=== PATIENT | female | born 1935 | race Caucasian/White ===

== ENCOUNTER 2020-05-20 22:58 | Inpatient (IN) | payer MEDICARE, OTHER ==
[~2020-05-20] VITALS: Ht 170.2 cm; Wt 81.6 kg
[~2020-05-20 22:58] MED LIST: AMLO2.5T2 PO; AMYL1CAP58 PO; ATOR40TA GT; CALC-718 PO; CLOP75TA15 PO; DEXL60CA3 PO; LEVO100T9 PO; MECL-159 PO; OLME40TA12 PO; RANI300T7 PO
[2020-05-20] MEDS ORDERED: ONDANSETRON HCL/PF 4 MG/2 ML VIAL ONE (23:46)
[2020-05-20 23:57] LABS: BASOPHILS % (AUTO) 0.3 % (0.0-2.0); EOSINOPHILS % (AUTO) 0.2 % (0.0-6.0); HEMATOCRIT 34 % (33-45); HEMOGLOBIN 11.1 g/dL (11.5-14.8); LYMPHOCYTES % (AUTO) 11.3 % (20.0-44.0); MEAN CORPUSCULAR HGB CONC 33 g/dl (31.0-36.0); MEAN CORPUSCULAR VOLUME 89 fL (82-100); MONOCYTES # (AUTO) 0.9 /CMM (0.1-1.30); MONOCYTES % (AUTO) 10.4 % (2.0-12.0); NEUTROPHILS # (AUTO) 6.8 /CMM (1.8-8.9); NEUTROPHILS % (AUTO) 77.8 % (43.0-81.0); PLATELET COUNT (AUTO) 235 /CMM (150-450); RED BLOOD CELL COUNT(AUTO) 3.75 MIL/uL (4.0-5.2); WHITE BLOOD COUNT (AUTO) 8.8 K/uL (4.3-11.0)
[2020-05-21] MEDS ORDERED: IV NS 0.9% 1,000 ML BAG IV ONE
[2020-05-21] MEDS ORDERED: ONDANSETRON HCL/PF 4 MG/2 ML VIAL IVP ONE
--- NOTE | 2020-05-21 | NUR ---
BIBS C/O HEADACHE, FEVER, ABDOMINAL PAIN WITH NAUSEA X3 DAYS. PT DENIES N/V.
[2020-05-21 00:13] LABS: ALBUMIN 3.5 g/dL (3.4-5.0); BILIRUBIN,DIRECT 0.2 mg/dL (0.0-0.2); BILIRUBIN,TOTAL 0.5 mg/dL (0.2-1.0); CALCIUM, SERUM 8.2 mg/dL (8.5-10.1); CREATININE 1.2 mg/dL (0.6-1.3); POTASSIUM 3.5 mmol/L (3.5-5.1); TOTAL PROTEIN, SERUM 7.5 g/dL (6.4-8.2)
[2020-05-21] MEDS ORDERED: CT SWABBABLE VALVE TRANS SET 1 EA INFUS.SET MC ONE (00:24)
[2020-05-21] MEDS ORDERED: IOHEXOL-300 100 ML VIAL IV ONE (00:24)
[2020-05-21] MEDS ORDERED: IV NS 0.9% 250 ML IV ONE (00:25)
[2020-05-21 00:44] LABS: APPEARANCE,URINE CLEAR (CLEAR); BILIRUBIN,URINE NEGATIVE (NEGATIVE); BLOOD, URINE TRACE-INTA Ery/uL (NEGATIVE); COLOR,URINE YELLOW (YELLOW); KETONES,URINE NEGATIVE (NEGATIVE); LEUKOCYTE ESTERASE ,URINE TRACE (NEGATIVE); NITRITE, URINE NEGATIVE (NEGATIVE); PROTEIN,URINE TRACE mg/dl (NEGATIVE); UGLUCOSE NEGATIVE (NEGATIVE); UROBILINOGEN,URINE 0.2 EU/dL (0.2)
[2020-05-21 01:22] LABS: BACTERIA,URINE None seen /HPF (None Seen); SQUAMOUS EPITHELIAL CELL,UR Few /HPF (None Seen)
[2020-05-21] MEDS ORDERED: PIPERACILLIN /TAZOBACTAM 3.375 G VIAL IV ONE (02:46)
[2020-05-21] MEDS ORDERED: PIPERACILLIN /TAZOBACTAM 3.375 G in IV D5W 50 ML IV ONE (03:00)
--- NOTE | 2020-05-21 03:20 | NUR ---
covid test collected and sent to lab
--- NOTE | 2020-05-21 04:25 | NUR ---
COVID NEGATIVE PER LAB
--- NOTE | 2020-05-21 05:32 | NUR ---
REPORT GIVEN TO ALICJA HDEZ
--- NOTE | 2020-05-21 05:34 | NUR ---
Received report from KETTY Esparza for BRII.
--- NOTE | 2020-05-21 06:20 | NUR ---
FREELANCE RECRUITER NOTE: Pt arrived to unit via wheelchair accompanied by RN. Bill, mainly [place] speaking. On room air, tolerating well. No SOB or respiratory distress noted. Breathing even and unlabored. IV site on left AC #20 patent and flushed. Dressing c/d/i. pt ambulated to bed, w/ unsteady gait. Refused bed bath at this time. VSS. Oriented to room and call light. Safety measures in place. Addendum: 05/21/20 at 0640 by ALICJA KING RN Paged Dr. Nikhil Hassan to update that pt is on unit and for admitting orders.
[2020-05-21 06:33] VITALS: BP 137/73
--- NOTE | 2020-05-21 06:39 | NUR ---
pt taken to [facility] via acls protocol
--- NOTE | 2020-05-21 07:02 | NUR ---
RN CLOSING NOTES: Pt remains in stable condition. No acute changes noted. Will endorse to AM nurse for BRII
--- NOTE | 2020-05-21 07:15 | NUR ---
RN NOTES RECEIVED PATIENT ASLEEP, AWAKEN BY VERBAL STIMULI. A/0 X4, ABLE TO MAKE NEEDS KNOWN BUT SPEAK PRIMARILY GRENADIAN LANGUAGE.WITH COMPLAINTS OF PAIN ON THE ABDOMEN, SCALE 3-4/10. ON ROOM AIR, BREATHING UNLABORED, SATING FINE. SINUS RHYTHM ON THE MONITOR WITH HR ON THE MONITOR WITH HR ON THE 60s. IV ACCESS ON THE LAC G 20, INTACT AND IN PLACE, FLUSHES GOOD. PATIENT ENCOURAGE TO CALL FOR ASSISTANCE, ENCOURAGE TO CALL FOR HELP AND ASSISTANCE, CALL LIGHT PLACED WITHIN REACH. BED PLACE IN LOW AND LOCKED POSITION. WILL CONTINUE TO MONITOR PATIENT ACCORDINGLY
[2020-05-21] MEDS ORDERED: ONDANSETRON HCL/PF 4 MG/2 ML VIAL IVP PRN (07:30)
[2020-05-21] MEDS ORDERED: Z GUARD REMEDY 2 OZ OINT TP PRN (07:30)
[2020-05-21] MEDS ORDERED: MECLIZINE HCL 25 MG TABLET PO PRN (07:30)
[2020-05-21] MEDS: LEVOTHYROXINE SODIUM 100 MCG TABLET PO SCH (07:30)
[2020-05-21 08:00] VITALS: BP 141/71
[2020-05-21] MEDS ORDERED: AMYLASE/LIPASE/PROTEASE 1 CAP CAPSULE.DR PO SCH (08:00)
[2020-05-21] MEDS: LIPASE/PROTEASE/AMYLASE 1 EACH CAPSULE.DR PO SCH ×3 (08:38→17:47)
[2020-05-21] MEDS: AMLODIPINE BESYLATE 2.5 MG TABLET PO SCH (09:00)
[2020-05-21] MEDS: ATORVASTATIN 40 MG TABLET PO SCH (09:00)
[2020-05-21] MEDS: VALSARTAN 80 MG TABLET PO SCH (09:00)
[2020-05-21] MEDS: CLOPIDOGREL BISULFATE 75 MG TABLET PO SCH (09:00)
[2020-05-21] MEDS: ENOXAPARIN SODIUM 40 MG/0.4 ML DISP.SYRIN SQ SCH (09:00)
--- NOTE | 2020-05-21 09:00 | NUR ---
RN NOTES 0846> OBTAIN ORDER FOR CONSENT FOR LAPAROSCOPY VERSUS OPEN EXPLORATION WITH POSSIBLE BOWEL RESECTION, POSSIBLE OSTOMY AND POSSIBLE ANY OTHER INDICATED PROCEDURE FROM DR. HERNANDEZ. AT THIS TIME PATIENT HAD EATEN APPLE SAUCE THE BREAKFAST TRAY HAS BEEN SERVED. INFORMED DR. HERNANDEZ ABOUT THE SITUATION, PER THE MD, IT IS OKAY 0900> OBTAINED CONSENT FOR SUGGESTED PROCEDURE FROM THE PATIENT HERSELF, KETTY IBANEZ AT BEDSIDE TO TRANSLATE. 0915> PATIENT TRANSPORTED TO OR BY OR TEAM.
--- NOTE | 2020-05-21 09:00 | NUR ---
rn notes oral meds not given due to schedule procedure
[2020-05-21] MEDS: PIPERACILLIN /TAZOBACTAM 3.375 G in IV D5W 100 ML IV SCH ×2 (09:21→17:02)
[2020-05-21] MEDS ORDERED: FENTANYL PF 250MCG/5ML AMPUL ONE (09:58)
[2020-05-21] MEDS ORDERED: MIDAZOLAM HCL 2 MG/2ML VIAL ONE (09:58)
[2020-05-21] MEDS ORDERED: FAMOTIDINE/PF INJ 20 MG/2 ML VIAL IV ONE (09:59)
[2020-05-21] MEDS ORDERED: HYDROMORPHONE INJ 2 MG/ML DISP.SYRIN ONE (09:59)
[2020-05-21] MEDS ORDERED: ROCURONIUM BROMIDE 50 MG/5 ML ONE (09:59)
[2020-05-21] MEDS ORDERED: LIDOCAINE 1% INJ 50 ML MDV IJ ONE (10:42)
[2020-05-21] MEDS ORDERED: BUPIVACAINE MPF 0.5% W/EPI INJ 30 ML VIAL ONE (10:43)
[2020-05-21] MEDS ORDERED: PIPERACILLIN /TAZOBACTAM 3.375 G in IV D5W 50 ML IV SCH (12:00)
[2020-05-21 12:01] LABS: THYROID STIMULATING HORMONE 0.428 uIU/mL (0.358-3.74)
[2020-05-21] MEDS ORDERED: hydrALAZINE HCL IV 20 MG VIAL ONE (12:18)
[2020-05-21 12:24] LABS: MAGNESIUM 2.1 mg/dL (1.8-2.4); PHOSPHORUS 3.3 mg/dL (2.5-4.9)
--- NOTE | 2020-05-21 13:00 | NUR ---
rn notes medication not given due to patient s/p laparotomy, awaiting confirmation for post op order from Dr. Elizondo
[2020-05-21 13:30] VITALS: BP 113/67
--- NOTE | 2020-05-21 13:30 | NUR ---
sly betancourt patient back from OR. awake, able to respond appropriately but is lethargic. per report patient s/p laparotomy, appendectomy with liver biopsy. made comfortable and warmth in bed. vital signs taken and noted (please refer to vital signs flow sheet). encourage to verbalize feelings and concerns. call light placed within reach. will continue to monitor patient accordingly 1405> Confirmed with Dr. Elizondo to continue all previous preop orders Addendum: 05/21/20 at 1647 by JEREMY QUEVEDO RN laparotomy site with with steri strip, with minimal bleeding noted
[2020-05-21 16:00] VITALS: BP 102/60
[2020-05-21] MEDS: IV NS 0.9% 1,000 ML IV PRN (17:02)
[2020-05-21] MEDS: ACETAMINOPHEN 325 MG TABLET PO PRN (17:54)
--- NOTE | 2020-05-21 18:30 | NUR ---
rn notes patient with no acute changes throughout the shift. breathing unlabored, with minimal oxygen support via nasal cannula at 2 lpm, sating fire.with coplaints of pain at surgical site but declines morphine due to tylenol was just given. all nursing needs attended. all concerns addressed accordingly. safety measures in place at all time. call light within reach Addendum: 05/21/20 at 1845 by JEREMY QUEVEDO RN surgical site dry, no bleeding noted aside from the stain on the steri strips which are noted when patient came back from procedure. patient was able to ambulate to the restroom once since transfer ffromm OR but with assist from the staff
--- NOTE | 2020-05-21 19:56 | NUR ---
SOCIAL MEDIA MARKETER NOTE PT IN BED A/O X 4 HAITIAN SPEAKING, NO SOB, NO DISTRESS OR DISCOMFORT NOTED. DENIES PAIN AT THIS TIME. STERI STRIPES X 3 ON LT SIDE OF ABD INTACT WITH SOME DRY BLOOD NOTED ON THEM. ON TELE MONITOR SR/SB HR 66 WITH INVERTED T WAVE. IVF NS @ 75 ML/HR INFUSING WELL, NO S/S OF INFILTRATION NOTED. ALSO INFUSING ATB ZOSYN AT 25 MG/HR. NO S/S OF INFILTRATION NOTED. KEPT HIM DRY AND CLEAN. ALL NEEDS ATTENDED. VSS. SIDE RAILS UP X 2 AND CALL LIGHT WITHIN REACH. CONTINUE TO MONITOR HIM.
--- NOTE | 2020-05-21 19:56 | NUR ---
Patient primary language is Eritrean. Spoke with son Nathan [phone]. Patient lives locally with spouse in the second floor apartment with no elevator access. She was ambulating with a walker prior to admission and min assist with adl's. Has no homehealth reported, she owns a cane and walker for mobility. Has good family support and will provide ride when discharge.. Addendum: 05/21/20 at 1955 by CHRIS BANKS RN Amended: Links added.
[2020-05-21 20:00] VITALS: BP 90/49
[2020-05-21] MEDS: MORPHINE SULFATE INJ 2 MG/ML DISP.SYRIN IV PRN (23:24)
[2020-05-22] VITALS: BP 127/68
[2020-05-22] MEDS: PIPERACILLIN /TAZOBACTAM 3.375 G in IV D5W 100 ML IV SCH ×3 (01:56→17:00)
[2020-05-22] MEDS: IV NS 0.9% 1,000 ML IV PRN (05:48)
[2020-05-22] MEDS: ACETAMINOPHEN 325 MG TABLET PO PRN (06:03)
--- NOTE | 2020-05-22 06:38 | NUR ---
REEL AND REWINDER OPERATOR NOTE PT IN BED AWAKE. NO DISTRESS OR DISCOMFORT NOTED. DENIES PAIN. ON TELE SR . SIDE RAILS UP X 2 AND CALL LIGHT WITHIN REACH. WILL ENDORSE TO DAY SHIFT NURSE FOR CONTINUE TO CARE.
[2020-05-22 07:00] LABS: BASOPHILS % (AUTO) 0.4 % (0.0-2.0); EOSINOPHILS % (AUTO) 1.1 % (0.0-6.0); HEMATOCRIT 32 % (33-45); HEMOGLOBIN 10.3 g/dL (11.5-14.8); LYMPHOCYTES # (AUTO) 1.2 /CMM (0.8-4.8); LYMPHOCYTES % (AUTO) 13.8 % (20.0-44.0); MEAN CORPUSCULAR HGB CONC 33 g/dl (31.0-36.0); MEAN CORPUSCULAR VOLUME 93 fL (82-100); MONOCYTES % (AUTO) 11.3 % (2.0-12.0); NEUTROPHILS # (AUTO) 6.6 /CMM (1.8-8.9); NEUTROPHILS % (AUTO) 73.4 % (43.0-81.0); PLATELET COUNT (AUTO) 197 /CMM (150-450); RED BLOOD CELL COUNT(AUTO) 3.41 MIL/uL (4.0-5.2)
--- NOTE | 2020-05-22 07:25 | NUR ---
RN OPENING NOTES RECEIVED PT IN BED . A/O X 4. MONTSERRATIAN SPEAKING. ON 2L O2 VIA NC SATURATING @97%. NO SOB OR NO ANY RESPIRATORY DISTRESS AT THIS TIME. STERI STRIPES X 3 ON LT SIDE OF ABD INTACT WITH SOME DRY BLOOD NOTED ON THEM. L HAND #20 INTACT, PATENT AND FLUSHED. IVF NS @ 75 ML/HR INFUSING WELL. NO PAIN REPORTED AT THIS MOMENT. SAFETY MEASURES OBSERVED. CALL LIGHT WITHIN REACH. BED LOCKED AND AT LOWEST POSITION WITH SIDE RAILS UP X2. WILL CONTINUE TO MONITOR.
[2020-05-22 07:35] LABS: CALCIUM, SERUM 7.4 mg/dL (8.5-10.1); CREATININE 1.1 mg/dL (0.6-1.3); MAGNESIUM 2.3 mg/dL (1.8-2.4); PHOSPHORUS 3.3 mg/dL (2.5-4.9); POTASSIUM 3.3 mmol/L (3.5-5.1)
[2020-05-22 08:00] VITALS: BP 145/76
[2020-05-22] MEDS: LIPASE/PROTEASE/AMYLASE 1 EACH CAPSULE.DR PO SCH ×3 (08:12→18:07)
[2020-05-22] MEDS: LEVOTHYROXINE SODIUM 100 MCG TABLET PO SCH (08:12)
[2020-05-22] MEDS: AMLODIPINE BESYLATE 2.5 MG TABLET PO SCH (08:13)
[2020-05-22] MEDS: CLOPIDOGREL BISULFATE 75 MG TABLET PO SCH ×2 (08:13→08:59)
[2020-05-22] MEDS: VALSARTAN 80 MG TABLET PO SCH ×2 (08:13→08:59)
[2020-05-22] MEDS: ATORVASTATIN 40 MG TABLET PO SCH ×2 (08:13→08:59)
[2020-05-22] MEDS: ENOXAPARIN SODIUM 40 MG/0.4 ML DISP.SYRIN SQ SCH ×2 (08:15→08:59)
[2020-05-22 08:35] LABS: THYROID STIMULATING HORMONE 0.485 uIU/mL (0.358-3.74)
--- NOTE | 2020-05-22 09:00 | NUR ---
RN NOTES PER DR. HURD HOLD STATIN, PLAVIX AND LOVENOX UNTIL OK WITH DR. HERNANDEZ. WILL CONTINUE TO MONITOR
[2020-05-22] MEDS: POTASSIUM CL. PREMIX PERIPHER. 50 ML IV SCH ×4 (09:26→12:08)
[2020-05-22] MEDS ORDERED: POTASSIUM CHLORIDE 20 MEQ TAB.PRT.SR PO ONE (13:00)
[2020-05-22] MEDS: SOD FERRIC GLUC 125 MG in IV NS 0.9% 100 ML IV SCH (14:00)
[2020-05-22 16:00] VITALS: BP 159/84
--- NOTE | 2020-05-22 19:00 | NUR ---
RN OPENING NOTE RECEIVED PATIENT IN BED RESTING ALERT ORIENTED VERBALLY RESPONSIVE NO SOB NOT ACUTE DISTRESS NOTED, PALAUAN SPEAKER ON OXYGEN 2L VIA NASAL CANNULA O2:96% IV LINE IS ON LEFT FOREARM INTACT PATENT ON IV HYDRATION NS 0.9% 75 CC/HR,AMBULATE WITH ASSIST CONTINENT TO BOWEL/BLADDER,BED LOCKED IN LOW POSITION,BED ALARM IS ON,CALL LIGHT WITHIN REACH,CONTINUE TO MONITOR
--- NOTE | 2020-05-22 19:09 | NUR ---
RN OPENING NOTES PT RESTING IN BED . A/O X 4. CHINESE SPEAKING. ON 2L O2 VIA NC SATURATING @98%. NO SOB OR NO ANY RESPIRATORY DISTRESS AT THIS TIME. STERI STRIPES X 3 ON LT SIDE OF ABD INTACT WITH SOME DRY BLOOD NOTED ON THEM. L HAND #20 INTACT, PATENT AND FLUSHED. IVF NS @ 75 ML/HR INFUSING WELL. NO PAIN REPORTED AT THIS MOMENT. ALL MEDS ADMINISTERED ORDERED. NO SIGNIFICANT CHANGES. SAFETY MEASURES OBSERVED. CALL LIGHT WITHIN REACH. BED LOCKED AND AT LOWEST POSITION WITH SIDE RAILS UP X2. WILL ENDORSE TO NIGHT NURSE FOR BRII Addendum: 05/22/20 at 1913 by PATRICIA AUGUSTIN RN RN CLOSING NOTES
[2020-05-22] MEDS: MORPHINE SULFATE INJ 2 MG/ML DISP.SYRIN IV PRN (20:31)
[2020-05-22 21:08] VITALS: BP 155/89
[2020-05-23] VITALS: BP 184/102
[2020-05-23] MEDS ORDERED: hydrALAZINE HCL 25 MG TABLET PO PRN (00:30)
[2020-05-23] MEDS: PIPERACILLIN /TAZOBACTAM 3.375 G in IV D5W 100 ML IV SCH ×3 (00:40→17:04)
--- NOTE | 2020-05-23 00:45 | NUR ---
RN NOTE BP IS 184/[address] PHILLIP WITH NEW ORDER HYDRALAZINE 25MG PO PRN EVERY 4 HOURS IF SBP>165 NOTED AND CARRIED OUT,HYDRALAZINE 25MG PO GIVEN CONTINUE TO MONITOR
--- NOTE | 2020-05-23 02:12 | NUR ---
RN NOTE BP 159/89 HR 77 RR:20 T:98.1 O2:98% ON 2L/MIN VIA NASAL CANNULA
[2020-05-23 06:23] LABS: BASOPHILS % (AUTO) 0.5 % (0.0-2.0); EOSINOPHILS % (AUTO) 0.9 % (0.0-6.0); HEMATOCRIT 34 % (33-45); HEMOGLOBIN 11.5 g/dL (11.5-14.8); LYMPHOCYTES # (AUTO) 0.9 /CMM (0.8-4.8); LYMPHOCYTES % (AUTO) 10.5 % (20.0-44.0); MEAN CORPUSCULAR HGB CONC 33 g/dl (31.0-36.0); MEAN CORPUSCULAR VOLUME 89 fL (82-100); MONOCYTES # (AUTO) 0.8 /CMM (0.1-1.30); MONOCYTES % (AUTO) 9.2 % (2.0-12.0); NEUTROPHILS # (AUTO) 6.7 /CMM (1.8-8.9); NEUTROPHILS % (AUTO) 78.9 % (43.0-81.0); PLATELET COUNT (AUTO) 254 /CMM (150-450); RED BLOOD CELL COUNT(AUTO) 3.88 MIL/uL (4.0-5.2); WHITE BLOOD COUNT (AUTO) 8.5 K/uL (4.3-11.0)
--- NOTE | 2020-05-23 06:56 | NUR ---
RN CLOSING NOTE PATIENT REMAINS ON ALERT ORIENTED VERBALLY RESPONSIVE NO SOB NOT ACUTE DISTRESS NOTED SHE IS ON 2L/MIN OXYGEN VIA NASAL CANNULA O2:97% IV SITE IS ON LEFT FOREARM INTACT PATENT FLUSHED ON IV HYDRATION NS 0.9% 75CC/HR,AMBULATE WITH ASSIST CONTINENT TO BOWEL AND BLADDER,ALL DUE MEDS GIVEN MD ORDERED,KEPT CLEAN AND DRY ALL THE TIME,SAFETY MEASURE IMPLEMENTED,KEPT CALL LIGHT WITHIN REACH,ALL NEEDS MET,ENDORSE NEXT SHIFT FOR CONTINUATION OF CARE.
[2020-05-23 07:05] LABS: BILIRUBIN,TOTAL 0.5 mg/dL (0.2-1.0); CALCIUM, SERUM 7.9 mg/dL (8.5-10.1); MAGNESIUM 2.1 mg/dL (1.8-2.4); POTASSIUM 3.1 mmol/L (3.5-5.1); TOTAL PROTEIN, SERUM 7.1 g/dL (6.4-8.2)
--- NOTE | 2020-05-23 07:15 | NUR ---
RN OPENING NOTES RECEIVED PT IN BED . A/O X 4. BRITISH SPEAKING. ON 2L O2 VIA NC SATURATING @96%. NO SOB OR NO ANY RESPIRATORY DISTRESS AT THIS TIME. STERI STRIPES X 3 ON LT SIDE OF ABD INTACT WITH SOME DRY BLOOD NOTED ON THEM. LEANA #20 INTACT, PATENT AND FLUSHED. IVF NS @ 75 ML/HR INFUSING WELL. NO PAIN REPORTED AT THIS MOMENT. SAFETY MEASURES OBSERVED. CALL LIGHT WITHIN REACH. BED LOCKED AND AT LOWEST POSITION WITH SIDE RAILS UP X2. WILL CONTINUE TO MONITOR.
[2020-05-23] MEDS: LEVOTHYROXINE SODIUM 100 MCG TABLET PO SCH (07:30)
[2020-05-23 08:00] VITALS: BP 163/82
[2020-05-23] MEDS: LIPASE/PROTEASE/AMYLASE 1 EACH CAPSULE.DR PO SCH ×3 (08:00→17:06)
[2020-05-23] MEDS: ENOXAPARIN SODIUM 40 MG/0.4 ML DISP.SYRIN SQ SCH (09:00)
[2020-05-23] MEDS: ATORVASTATIN 40 MG TABLET PO SCH (09:00)
[2020-05-23] MEDS: CLOPIDOGREL BISULFATE 75 MG TABLET PO SCH (09:00)
[2020-05-23] MEDS: VALSARTAN 80 MG TABLET PO SCH (09:42)
[2020-05-23] MEDS: AMLODIPINE BESYLATE 2.5 MG TABLET PO SCH (09:42)
--- NOTE | 2020-05-23 10:00 | NUR ---
RN NOTES OBTAINED CONSENT FOR CT ANGIOGRAPHY. PT SIGNED
[2020-05-23] MEDS: POTASSIUM CHLORIDE 20 MEQ TAB.PRT.SR PO SCH ×3 (10:35→12:00)
[2020-05-23] MEDS ORDERED: IV NS 0.9% 500 ML IV PRN (11:00)
[2020-05-23] MEDS ORDERED: NITROGLYCERIN 0.4 MG/TAB BOTTLE SL PRN (11:00)
--- NOTE | 2020-05-23 11:30 | NUR ---
RN NOTES PT WAS BROUGHT TO CT ANGIO PER WHEELCHAIR. VS STABLE
[2020-05-23] MEDS ORDERED: NITROGLYCERIN 0.4 MG/TAB BOTTLE ONE (11:35)
[2020-05-23] MEDS ORDERED: METOPROLOL TARTRATE INJ 5 MG/5 ML AMPUL ONE (11:35)
[2020-05-23] MEDS ORDERED: IOHEXOL-350 100 ML VIAL IV ONE (11:45)
[2020-05-23] MEDS ORDERED: IV NS 0.9% 250 ML IV ONE (11:45)
[2020-05-23] MEDS: METOPROLOL TARTRATE INJ 5 MG/5 ML AMPUL IVP PRN ×2 (11:55→12:00)
[2020-05-23] MEDS: METOPROLOL TARTRATE 25 MG TABLET PO SCH ×3 (12:00→23:20)
--- NOTE | 2020-05-23 12:14 | NUR ---
received from floor via wheelchair for CTA heart with 3D imaging; pt received a Metoprolol 5mg IV x 2 dose (total of 10 mg) and NTG 0.4 SL; pt tolerated procedure; denies CP or SOB, report given to KETTY Mcdermott; sent back to floor by wheelchair
--- NOTE | 2020-05-23 12:45 | NUR ---
RN NOTES PT CAME BACK FROM CT ANGIO. VS STABLE. NO PAIN REPORTED AT THIS TIME. WILL CONTINUE TO MONITOR
[2020-05-23] MEDS ORDERED: BISACODYL (5 MG) 5 MG TABLET.DR PO PRN (13:00)
[2020-05-23] MEDS: ACETAMINOPHEN 325 MG TABLET PO PRN (13:09)
[2020-05-23] MEDS: SOD FERRIC GLUC 125 MG in IV NS 0.9% 100 ML IV SCH (14:00)
[2020-05-23 16:00] VITALS: BP 153/79
[2020-05-23] MEDS ORDERED: POTASSIUM CHLORIDE 20 MEQ TAB.PRT.SR PO ONE (17:00)
--- NOTE | 2020-05-23 19:32 | NUR ---
RN CLOSING NOTES PT RESTING IN BED. A/O X 4. MOZAMBICAN SPEAKING. ON 2L O2 VIA NC SATURATING @96%. NO SOB OR NO ANY RESPIRATORY DISTRESS AT THIS TIME. STERI STRIPES X 3 ON LT SIDE OF ABD INTACT WITH SOME DRY BLOOD NOTED ON THEM. LAC #18 INTACT, PATENT AND FLUSHED. IVF NS @ 75 ML/HR INFUSING WELL. NO PAIN REPORTED AT THIS MOMENT. SAFETY MEASURES OBSERVED. CALL LIGHT WITHIN REACH. BED LOCKED AND AT LOWEST POSITION WITH SIDE RAILS UP X2. WILL ENDORSE TO NIGHT NURSE FOR BRII.
--- NOTE | 2020-05-23 19:40 | NUR ---
RN OPENING NOTE RECEIVED PATIENT IN BED RESTING ALERT ORIENTED X4 VERBALLY RESPONSIVE,CZECH SPEAKER NO SOB NOT ACUTE DISTRESS NOTED ON 2L OXYGEN VIA NASAL CANNULA O2:96% NO PAIN AT THIS TIME,AMBULATE WITH ASSIST BY WALKER CONTINENT TO BOWEL AND BLADDER IV LINE IS ON LEFT AC INTACT PATENT FLUSHED,IV HYDRATION NORMAL SALINE 0.9% RUNNING 75CC/HR,DIET CHANGED TO SOFT DIET,IMPLEMENT SAFETY MEASURE,BED LOCKED AND IN LOW POSITON,KEEP CALL LIGHT WITHIN REACH,CONTINUE TO MONITOR.
[2020-05-23] MEDS: IV NS 0.9% 1,000 ML IV PRN (22:47)
[2020-05-24] VITALS: BP 130/69
[2020-05-24] MEDS: PIPERACILLIN /TAZOBACTAM 3.375 G in IV D5W 100 ML IV SCH ×3 (01:09→16:35)
[2020-05-24] MEDS: METOPROLOL TARTRATE 25 MG TABLET PO SCH ×3 (05:26→17:19)
--- NOTE | 2020-05-24 06:50 | NUR ---
RN CLOSING NOTE PATIENT REMAINS ALERT ORIENTED X4 VERBALLY RESPONSIVE NO SOB NOT ACUTE DISTRESS NOTED ON 2L/MIN VIA NASAL CANNULA O2:96% IV SITE IS ON LEFT AC INTACT PATENT IV HYDRATION NORMAL SALINE 0.9% RUNNING 75cc/HR.ALL DUE MEDS GIVEN MD ORDERED KEPT CLEAN AND DRY ALL THE TIME,KEPT CALL LIGHT WITHIN REACH,IMPLEMENTED SAFETY MEASURE,ALL NEEDS MET ENDORSE NEXT COMING SHIFT FOR CONTINUATION OF CARE.
[2020-05-24 06:52] LABS: CALCIUM, SERUM 7.8 mg/dL (8.5-10.1); POTASSIUM 3.4 mmol/L (3.5-5.1)
[2020-05-24 06:53] LABS: BASOPHILS % (AUTO) 0.2 % (0.0-2.0); EOSINOPHILS % (AUTO) 1.9 % (0.0-6.0); HEMATOCRIT 32 % (33-45); HEMOGLOBIN 10.7 g/dL (11.5-14.8); LYMPHOCYTES # (AUTO) 0.8 /CMM (0.8-4.8); LYMPHOCYTES % (AUTO) 11.3 % (20.0-44.0); MEAN CORPUSCULAR HGB CONC 34 g/dl (31.0-36.0); MEAN CORPUSCULAR VOLUME 89 fL (82-100); MONOCYTES # (AUTO) 0.9 /CMM (0.1-1.30); MONOCYTES % (AUTO) 11.8 % (2.0-12.0); NEUTROPHILS # (AUTO) 5.6 /CMM (1.8-8.9); NEUTROPHILS % (AUTO) 74.8 % (43.0-81.0); PLATELET COUNT (AUTO) 241 /CMM (150-450); RED BLOOD CELL COUNT(AUTO) 3.55 MIL/uL (4.0-5.2); WHITE BLOOD COUNT (AUTO) 7.5 K/uL (4.3-11.0)
--- NOTE | 2020-05-24 07:15 | NUR ---
MS RN NOTES PATIENT IN BED ALERT ORIENTED X 3. NO ACUTE DISTRESS NOTED. BREATHING UNLABORED. NO SOB NOTED. IV ACCESS PATENT AND INTACT, NO REDNESS, NO SWELLING NOTED. SAFETY MEASURES IN PLACE. CALL LIGHT WITHIN REACH. WILL CONTINUE TO MONITOR ACCORDINGLY.
[2020-05-24] MEDS ORDERED: POTASSIUM CHLORIDE 20 MEQ TAB.PRT.SR PO ONE (07:30)
[2020-05-24] MEDS: LEVOTHYROXINE SODIUM 100 MCG TABLET PO SCH (07:46)
[2020-05-24 08:00] VITALS: BP 158/80
[2020-05-24] MEDS: ATORVASTATIN 40 MG TABLET PO SCH ×2 (08:17→09:00)
[2020-05-24] MEDS: AMLODIPINE BESYLATE 5 MG TABLET PO SCH (08:17)
[2020-05-24] MEDS: LIPASE/PROTEASE/AMYLASE 1 EACH CAPSULE.DR PO SCH ×3 (08:18→17:18)
[2020-05-24] MEDS: VALSARTAN 80 MG TABLET PO SCH (08:19)
--- NOTE | 2020-05-24 08:30 | NUR ---
MS RN NOTES ATORVASTIN HELD PER MD ORDER, ALREADY OPEN PACKAGED, PROPERLY WASTED MEDICATION.
[2020-05-24] MEDS: CLOPIDOGREL BISULFATE 75 MG TABLET PO SCH (09:00)
[2020-05-24] MEDS: SENNOSIDES/DOCUSATE SODIUM 1 TAB TABLET PO SCH (09:00)
--- NOTE | 2020-05-24 09:00 | NUR ---
MS RN NOTES PATIENT REFUSED TO TAKE SENNA , RAYNE GOYAL MADE AWARE.
--- NOTE | 2020-05-24 09:30 | NUR ---
MS RN NOTES CLARIFIED WITH JESU MÉNDEZ REGARDING LOVENOX IF OK TO GIVE , RAYNE MÉNDEZ SAID HE WILL CHECK FIRST.
[2020-05-24] MEDS: ENOXAPARIN SODIUM 40 MG/0.4 ML DISP.SYRIN SQ SCH (10:00)
--- NOTE | 2020-05-24 10:00 | NUR ---
MS RN NOTES HELD LOVENOX PER AGENCY CASHIER JESU MÉNDEZ HOLD LOVENOX
[2020-05-24] MEDS ORDERED: LACTULOSE 10 G/15 ML UDC (PYXIS) PO ONE (11:00)
[2020-05-24] MEDS ORDERED: MAGNESIUM HYDROXIDE 30 ML UDC PO ONE (11:00)
[2020-05-24] MEDS ORDERED: AMOX500C2 PO (12:44)
[2020-05-24] MEDS ORDERED: DOCU100C36 PO (12:44)
[2020-05-24] MEDS ORDERED: BISACODYL (5 MG) 5 MG TABLET.DR PO ONE (14:30)
--- NOTE | 2020-05-24 14:32 | NUR ---
MS RN NOTES PATIENT REFUSED TO TAKE DULCOLAX , RAYNE PERSAUD AND RAYNE GOYAL MADE AWARE.
[2020-05-24] MEDS: SOD FERRIC GLUC 125 MG in IV NS 0.9% 100 ML IV SCH (15:02)
[2020-05-24] MEDS: IV NS 0.9% 1,000 ML IV PRN (15:06)
--- NOTE | 2020-05-24 15:32 | NUR ---
MS RN NOTES RECEIVED NEW ORDERS FROM RAYNE LANGE, NOTED AND CARRIED OUT
--- NOTE | 2020-05-24 15:36 | NUR ---
PATIENT REFUSED TO GO HOME WITHOUT BM,REFUSED DULCOLAX AND TOOK LACTULOSE,PRIMARY MD MADE AWARE,WILL CONTINUE TO FOLLOW UP.
[2020-05-24 16:00] VITALS: BP 148/79
[2020-05-24] MEDS ORDERED: MAGNESIUM CITRATE 296 ML BOTTLE PO ONE (16:00)
[2020-05-24] MEDS ORDERED: POLYETHYLENE GLYCOL 3350 17 GM POWD.PACK PO PRN (16:00)
[2020-05-24] MEDS ORDERED: BISACODYL SUPP (10 MG) 10 MG/SUPP.RECT SUPP.RECT RC PRN (16:00)
--- NOTE | 2020-05-24 17:11 | NUR ---
PATIENT TOOK MAGCITRATE,REFUSED ENEMA AND WANTED TO TAKE HER TIME TO MOVE HER BOWEL,DISCUSSED WITH MANAGER MARKET DEVELOPMENT SHANI OFFERED SNF PATIENT STILL REFUSE,DMHOLLIE MADE AWARE.
--- NOTE | 2020-05-24 17:59 | NUR ---
PATIENT REFUSED TO TAKE ANYMORE LAXATIVE AT THIS TIME AND WANTED TO TAKE HER TIME MOVE BOWEL AGAIN JESU MADE AWARE AND OK PATIENT MAY STAY UNTIL TOMMOROW AND HE WILL REEVAL PATIENT.
--- NOTE | 2020-05-24 18:17 | NUR ---
DID NOT DISCONTINUE DISCHARGE PER JESU IF ABLE TO MOVE BOWEL IM STILL OK TO GO HOME.
--- NOTE | 2020-05-24 18:52 | NUR ---
MS RN CLOSING NOTES PATIENT IN BED ALERT ORIENTED X 3. NO ACUTE DISTRESS NOTED. BREATHING UNLABORED. NO SOB NOTED. IV ACCESS PATENT AND INTACT, NO REDNESS, NO SWELLING NOTED. NEEDS ATTENDED AND ANTICIPATED. KEPT CLEAN DRY AND COMFORTABLE. SAFETY MEASURES IN PLACE. CALL LIGHT WITHIN REACH. WILL ENDORSE TO NIGHT NURSE FOR CONTINUITY OF CARE.
[2020-05-24 19:53] VITALS: BP 163/95
--- NOTE | 2020-05-24 19:55 | NUR ---
RN NOTE RECEIVED PT IN BED A/O X3. PT IS ON RA SATING 95%. PT HAS UNLABORED BREATHING. PT HAS LAC 18 G NS RUNNING AT 75. IV SITE INTACT. SAFETY MEASURE IN PLACE HOB ELEVATED, CALL LIGHT IN REACH, SIDE RAILS UP X2, LOCKED, BED ALARM ON.
[2020-05-24 20:00] VITALS: BP 152/75
--- NOTE | 2020-05-24 20:20 | NUR ---
RN NOTE PT REFRAINING TO HAVE BM, SHE SATED " SHE HAS HEMORRHOIDS AND SCARED OF HAVING PAIN" CONTACTED DR CNATRELL AND RECEIVED ANUSOL HC BID FOR 3 DAYS ORDER.
[2020-05-24] MEDS ORDERED: HYDROCORTISONE ACETATE 25 MG/SUPP.RECT SUPP.RECT RC PRN (20:30)
[2020-05-25] MEDS: METOPROLOL TARTRATE 25 MG TABLET PO SCH ×3 (00:11→12:09)
[2020-05-25] MEDS: PIPERACILLIN /TAZOBACTAM 3.375 G in IV D5W 100 ML IV SCH ×2 (01:00→08:53)
[2020-05-25 04:00] VITALS: BP 158/91
[2020-05-25 04:23] VITALS: BP 158/91
--- NOTE | 2020-05-25 05:00 | NUR ---
RN NOTE PT PULLED OUT THE IV. PT REFUSED IV REINSERTION.
--- NOTE | 2020-05-25 07:15 | NUR ---
MS RN OPENING NOTE Received patient asleep in bed appears calm and relaxed no signs of distress. Patient is AO X4 Citizen Of [place] speaking but knows a little bit of Indian. Patient is ambulatory able to walk with walker. No IV site per night nurse patient refused. Patient had 3 bowel movements. Will inform MD. Safety measures maintained. Call light within reach. Will cont to monitor.
--- NOTE | 2020-05-25 07:26 | NUR ---
RN NOTE PT REMAINED STABLE DURING MY SHIFT. REPORT GIVEN TO INCOMING SHIFT FOR BRII.
[2020-05-25 08:00] VITALS: BP 128/86
[2020-05-25] MEDS: LIPASE/PROTEASE/AMYLASE 1 EACH CAPSULE.DR PO SCH ×2 (08:39→12:08)
[2020-05-25] MEDS: LEVOTHYROXINE SODIUM 100 MCG TABLET PO SCH (08:39)
[2020-05-25] MEDS: AMLODIPINE BESYLATE 5 MG TABLET PO SCH (08:46)
[2020-05-25] MEDS: ATORVASTATIN 40 MG TABLET PO SCH (08:48)
[2020-05-25] MEDS: ENOXAPARIN SODIUM 40 MG/0.4 ML DISP.SYRIN SQ SCH (08:52)
[2020-05-25] MEDS: CLOPIDOGREL BISULFATE 75 MG TABLET PO SCH (08:53)
[2020-05-25] MEDS: SENNOSIDES/DOCUSATE SODIUM 1 TAB TABLET PO SCH (08:55)
[2020-05-25] MEDS: VALSARTAN 80 MG TABLET PO SCH (08:56)
[2020-05-25] MEDS: POTASSIUM CHLORIDE 20 MEQ TAB.PRT.SR PO SCH ×3 (10:18→12:08)
[2020-05-25 10:53] LABS: CALCIUM, SERUM 8.8 mg/dL (8.5-10.1)
--- NOTE | 2020-05-25 11:07 | NUR ---
MS NOTE Received order for discharge. Informed grandgilberto Hardy. He said he will pick her up at 1pm. Prepared discharge paper informed the patient of the coal picker time. Gave discharge instructions to patient and understood.
[2020-05-25 12:09] VITALS: BP 142/81
--- NOTE | 2020-05-25 12:55 | NUR ---
MS DISCHARGE NOTE Patient was brought to the front lobby via wheelchair with belongings. Grandgilberto Hardy waiting. Explained the discharge instructions including follow up appointments to pcp, dr. fernandez and dr. foster. Showed prescription medications. Pt and family understood. Left with grandson via private car.
== END 2020-05-25 12:44 | disposition home or self-care (01) | DRG 341 ==
LOC: ER 23:04 → TELE1 05-21 06:09 → MEDSG1 05-23 19:20
PROVIDERS: ADMIT Internal Medicine; ATTEND Nurse Practitioner Acute Care
PROC: 0DTJ4ZZ Resection of Appendix, Percutaneous Endoscopic Approach (ICD-10-PCS; principal; 2020-05-21)
PROC: 0FB04ZX Excision of Liver, Percutaneous Endoscopic Approach, Diagnostic (ICD-10-PCS; 2020-05-21)
DX: K63.89 Other specified diseases of intestine (principal); I21.A1 Myocardial infarction type 2; E87.1 Hypo-osmolality and hyponatremia; E44.0 Moderate protein-calorie malnutrition; K55.9 Vascular disorder of intestine, unspecified; J98.11 Atelectasis; E03.9 Hypothyroidism, unspecified; D63.8 Anemia in other chronic diseases classified elsewhere; E83.51 Hypocalcemia; Z86.73 Personal history of transient ischemic attack (TIA), and cerebral infarction without residual deficits; I10 Essential (primary) hypertension; Z79.890 Hormone replacement therapy; Z88.1 Allergy status to other antibiotic agents; Z79.02 Long term (current) use of antithrombotics/antiplatelets; Z79.899 Other long term (current) drug therapy; E78.00 Pure hypercholesterolemia, unspecified; E78.5 Hyperlipidemia, unspecified; M19.90 Unspecified osteoarthritis, unspecified site; D50.9 Iron deficiency anemia, unspecified; E87.6 Hypokalemia; K66.0 Peritoneal adhesions (postprocedural) (postinfection); K57.30 Diverticulosis of large intestine without perforation or abscess without bleeding; K59.00 Constipation, unspecified; N13.5 Crossing vessel and stricture of ureter without hydronephrosis
CPT/HCPCS: 36415; 71045-TC; 75574; 80048-TC; 80053-TC; 80061-TC; 80076-TC; 81000-TC; 82728-TC; 83540-TC; 83605-TC; 83735-TC; 84100-TC; 84439-TC; 84443-TC; 84484-TC; 85025-TC; 85730-TC; 86850-TC; 87081-TC; 93307-TC; 97110-TC; 97116-TC; 97530-TC; C9803; G0378; J0360; J1170; J1650; J2250; J2270; J2405; J2543; J2704; J2765; J2916; J3010; J3480; J3490; J7030; J7050; J7060; Q9967

== ENCOUNTER 2024-08-02 14:44 | Emergency (ER) | payer MEDICARE, OTHER ==
[~2024-08-02] VITALS: Ht 162.6 cm; Wt 58.5 kg
[~2024-08-02 14:44] MED LIST changes: +AMOX500C2 PO; +DOCU100C36 PO
[2024-08-02] MEDS ORDERED: ACETAMINOPHEN ES 500 MG TABLET ONE (15:34)
[2024-08-02] MEDS: ACETAMINOPHEN ES 500 MG TABLET PO ONE (15:35)
[2024-08-02] MEDS ORDERED: ACET-2605 PO (17:23)
[2024-08-02] MEDS ORDERED: IBUP-1953 PO (17:23)
[2024-08-02 19:53] VITALS: BP 142/86; TEMP 97.8; O2SAT 96
== END 2024-08-02 19:53 | disposition home or self-care (01) ==
LOC: ER 14:46
DX: M17.11 Unilateral primary osteoarthritis, right knee (principal); I10 Essential (primary) hypertension; Z79.02 Long term (current) use of antithrombotics/antiplatelets; Z79.890 Hormone replacement therapy; Z79.899 Other long term (current) drug therapy; Z86.73 Personal history of transient ischemic attack (TIA), and cerebral infarction without residual deficits; Z88.1 Allergy status to other antibiotic agents; W18.30XA Fall on same level, unspecified, initial encounter; Y93.01 Activity, walking, marching and hiking; Y92.89 Other specified places as the place of occurrence of the external cause; Y99.8 Other external cause status
CPT/HCPCS: 73502; 73564-TC; 73590-TC